=== PATIENT | male | born 1930 | race Caucasian/White ===

== ENCOUNTER 2017-08-03 16:25 | Inpatient (IN) | payer MEDICARE, BC ==
[~2017-08-03] VITALS: Ht 170.2 cm; Wt 82.1 kg
[~2017-08-03 16:25] MED LIST: ASPIR 8181 MG PO; ASPIRIN81 M1 PO; COLACE100 MG PO; DOCUSATE CALCI100 MG PO; FLUCONAZOLE100 MG PO; LEVOTHYROXINE0.15 MG PO; PLAVIX75 M1 PO; PRAVASTATIN SOD20 MG PO; PRILOSEC40 MG PO; PROSCAR5 M1 PO; PULMICORT RESP0.5 M1 INH; SINGULAIR10 M1 PO; SYMBICORT1 AE1 INH; SYNTHROID,LEV150 MCG PO; TERAZOSIN HCL10 M1 PO; TERAZOSIN HCL2 M1 PO; TRIAMTERENE AND1 TA1 PO; ULTRAM50 MG PO
[2017-08-03 16:31] VITALS: BP 154/85
[2017-08-03 16:56] LABS: BASO # 0.1 10*3/uL (0.0-0.1); BASO % 1.1 % (0.0-1.0); EOS # 0.3 10*3/uL (0.0-0.4); EOS % 5.1 % (1.0-4.0); HEMATOCRIT 39.9 % (42.0-52.0); HEMOGLOBIN 13.3 g/dl (14.0-18.0); LYMPH # 1.2 10*3/uL (1.3-4.4); LYMPH % 19.7 % (27.0-41.0); MEAN CELL VOLUME 90.3 fl (80.0-94.0); MEAN CORPUSCULAR HGB 30.1 pg (27.0-31.0); MEAN CORPUSCULAR HGB CONC 33.3 g/dl (33.0-37.0); MEAN PLATELET VOLUME 11.1 fl (9.6-12.3); MONO # 0.9 10*3/uL (0.1-1.0); NEUT # 3.8 10*3/uL (2.3-7.9); NEUT % 59.9 % (47.0-73.0); PLATELET COUNT AUTOMATED 157 10*3/uL (130-400); RED BLOOD COUNT 4.42 10*6/uL (4.50-5.90); RED CELL DISTRI WIDTH 14.1 % (0-14.5); WHITE BLOOD COUNT 6.3 10*3/uL (4.8-10.8)
[2017-08-03 17:12] LABS: ALBUMIN 3.6 gm/dl (3.1-4.5); BUN 17 mg/dl (7-24); CREATININE 0.91 mg/dL (0.70-1.30); SGOT/AST 20 IU/L (3-35); SGPT/ALT 21 U/L (12-78)
[2017-08-03 17:14] LABS: ALKALINE PHOSPHATASE 87 U/L (45-117)
[2017-08-03 17:17] VITALS: BP 155/90
[2017-08-03 17:19] LABS: CHLORIDE 102 mmol/L (98-107); POTASSIUM 3.9 mmol/L (3.5-5.1); SODIUM 136 mmol/L (136-145)
[2017-08-03 17:21] LABS: TROPONIN I < 0.015 ng/ml (<0.045)
[2017-08-03 18:08] VITALS: BP 158/88
[2017-08-03] MEDS ORDERED: FLOMAX0.4 MG PO ×2 (18:21→18:34)
[2017-08-03] MEDS ORDERED: VENTOLIN 02.5 MG/3 M INH (18:33)
[2017-08-03 20:00] VITALS: BP 151/63
[2017-08-04] VITALS: BP 149/78
[2017-08-04 03:53] VITALS: BP 154/78
[2017-08-04 06:33] LABS: BASO # 0.1 10*3/uL (0.0-0.1); BASO % 1.5 % (0.0-1.0); EOS # 0.5 10*3/uL (0.0-0.4); EOS % 7.9 % (1.0-4.0); HEMATOCRIT 44.3 % (42.0-52.0); HEMOGLOBIN 14.4 g/dl (14.0-18.0); LYMPH # 1.5 10*3/uL (1.3-4.4); LYMPH % 22.2 % (27.0-41.0); MEAN CELL VOLUME 91.9 fl (80.0-94.0); MEAN CORPUSCULAR HGB 29.9 pg (27.0-31.0); MEAN CORPUSCULAR HGB CONC 32.5 g/dl (33.0-37.0); MEAN PLATELET VOLUME 11.6 fl (9.6-12.3); MONO # 0.9 10*3/uL (0.1-1.0); MONO % 13.1 % (3.0-9.0); NEUT # 3.6 10*3/uL (2.3-7.9); PLATELET COUNT AUTOMATED 175 10*3/uL (130-400); RED BLOOD COUNT 4.82 10*6/uL (4.50-5.90); RED CELL DISTRI WIDTH 14.1 % (0-14.5); WHITE BLOOD COUNT 6.6 10*3/uL (4.8-10.8)
[2017-08-04 06:48] LABS: ALBUMIN 3.9 gm/dl (3.1-4.5); BUN 11 mg/dl (7-24); CHLORIDE 101 mmol/L (98-107); POTASSIUM 3.6 mmol/L (3.5-5.1); SODIUM 137 mmol/L (136-145)
[2017-08-04 06:57] LABS: ALKALINE PHOSPHATASE 84 U/L (45-117); CHOLESTEROL 166 mg/dL (<200); CREATININE 0.82 mg/dL (0.70-1.30); FREE T4 1.33 ng/dl (0.76-1.46); HDL CHOLESTEROL 79 mg/dl (40-60); LDL CHOLESTEROL 72 mg/dL (9-159); PHOSPHOROUS 3.3 mg/dL (2.5-4.9); SGOT/AST 24 IU/L (3-35); SGPT/ALT 20 U/L (12-78); TOTAL PROTEIN 7.6 gm/dL (6.4-8.2); TRIGLYCERIDES 76 mg/dl (<150); VLDL CHOLESTEROL 15 mg/dL (6-40)
[2017-08-04 07:39] LABS: ACT PARTIAL THROMBO TIME 24.6 SECONDS (20.8-31.5)
[2017-08-04 08:00] VITALS: BP 148/97
[2017-08-04 09:38] LABS: VITAMIN D, 25-HYDROXY 16.2 ng/mL (30-100)
[2017-08-04] MEDS ORDERED: SYMB160 INH (09:42)
== END 2017-08-04 16:15 | disposition home or self-care (01) | DRG 392 ==
LOC: ED 16:25 → 4E 17:46 → EDHOLD 17:46 → 4E 17:54
PROVIDERS: Emergency Medicine; Family Medicine
PROC: 3E073KZ Introduction of Other Diagnostic Substance into Coronary Artery, Percutaneous Approach (ICD-10-PCS; principal; 2017-08-04)
PROC: 4A02XM4 Measurement of Cardiac Total Activity, External Approach (ICD-10-PCS; principal; 2017-08-04)
DX: K21.9 Gastro-esophageal reflux disease without esophagitis (principal); D64.9 Anemia, unspecified; E83.41 Hypermagnesemia; I45.10 Unspecified right bundle-branch block; I10 Essential (primary) hypertension; J45.909 Unspecified asthma, uncomplicated; N40.0 Benign prostatic hyperplasia without lower urinary tract symptoms; R73.03 Prediabetes; D72.810 Lymphocytopenia; E66.3 Overweight; E78.5 Hyperlipidemia, unspecified; E89.0 Postprocedural hypothyroidism; Z95.0 Presence of cardiac pacemaker; Z68.28 Body mass index [BMI] 28.0-28.9, adult; Z90.49 Acquired absence of other specified parts of digestive tract; Z79.02 Long term (current) use of antithrombotics/antiplatelets; Z79.82 Long term (current) use of aspirin; Z79.899 Other long term (current) drug therapy; Z88.0 Allergy status to penicillin; Z88.8 Allergy status to other drugs, medicaments and biological substances; Z88.1 Allergy status to other antibiotic agents; Z91.041 Radiographic dye allergy status

== ENCOUNTER → 2018-12-02 | Outpatient (CLI) | payer MEDICARE, BC ==
[~2018-12-02] MED LIST changes: +FLOMAX0.4 MG PO; +SYMB160 INH; +VENTOLIN 02.5 MG/3 M INH
[2018-12-02 10:58] LABS: BUN 10 mg/dl (7-24); CHLORIDE 101 mmol/L (98-107); CHOLESTEROL 148 mg/dL (<200); CREATININE 0.87 mg/dL (0.70-1.30); FREE T4 1.09 ng/dl (0.76-1.46); HDL CHOLESTEROL 66 mg/dl (40-60); LDL CHOLESTEROL 66 mg/dL (9-159); POTASSIUM 4.6 mmol/L (3.5-5.1); SODIUM 138 mmol/L (136-145); TRIGLYCERIDES 82 mg/dl (<150); VLDL CHOLESTEROL 16 mg/dL (6-40)
== END | disposition home or self-care (01) ==
LOC: LAB 09:26
PROVIDERS: Family Medicine
DX: E78.2 Mixed hyperlipidemia (principal); E03.9 Hypothyroidism, unspecified; I10 Essential (primary) hypertension; Z79.899 Other long term (current) drug therapy

== ENCOUNTER → 2019-04-21 | Outpatient (CLI) | payer MEDICARE, BC | END | disposition home or self-care (01) | LOC: RESCLI 11:19 | DX: J45.909 Unspecified asthma, uncomplicated (principal); E03.9 Hypothyroidism, unspecified; K21.9 Gastro-esophageal reflux disease without esophagitis; N40.0 Benign prostatic hyperplasia without lower urinary tract symptoms; I25.10 Atherosclerotic heart disease of native coronary artery without angina pectoris; I63.9 Cerebral infarction, unspecified; E78.5 Hyperlipidemia, unspecified; Z95.0 Presence of cardiac pacemaker; Z90.89 Acquired absence of other organs; Z90.49 Acquired absence of other specified parts of digestive tract; Z88.0 Allergy status to penicillin; Z91.041 Radiographic dye allergy status ==